=== PATIENT | female | born 1955 | race Caucasian/White ===

== ENCOUNTER 2020-02-23 13:30 | Outpatient (REF) | payer MEDICARE, SELFPAY | END 2020-02-23 13:31 | disposition home or self-care (01) | LOC: HO.LAB 13:30 | PROVIDERS: PCP Family Medicine; Visit Provider Internal Medicine | DX: Z20.828 Contact with and (suspected) exposure to other viral communicable diseases (principal) | CPT/HCPCS: C9803; U0003 ==

== ENCOUNTER 2024-09-13 17:00 | Emergency (ER) | payer MEDICARE, SELFPAY ==
--- NOTE | ~2024-09-13 | XR_ITS ---
CLINICAL HISTORY: fall --- Additional Notes or Special Instructions: atten. 2nd digit 3 view left foot Comparison: None provided Findings: There is osseous remodeling of the head of the 3rd metatarsal as well as the proximal end of the proximal phalanx of the 3rd digit. Suspect that changes are related to prior injury. No acute fracture deformity. Bone spurs at the attachment for the achilles tendon and the plantar fascia on the calcaneus. No ankle effusion. No radiopaque foreign body. IMPRESSION: 1. No acute fracture deformity. This document has been electronically signed by: Chintan Holguin MD on 09/13/2024 19:20:35
--- NOTE | ~2024-09-13 | XR_ITS ---
CLINICAL HISTORY: fall 3 view right shoulder Comparison: None provided Findings: There is a transverse fracture through the surgical neck of the right humerus. Fracture is medially displaced by 1 shaft width. Fracture is moderately comminuted, With fracture extending into the greater tuberosity.. There is widening of the subacromial space suggesting joint effusion. No erosions. No radiopaque foreign body. Surgical clips in the region of the right axilla. IMPRESSION: Displaced right humeral surgical neck fracture. This document has been electronically signed by: Chintan Holguin MD on 09/13/2024 19:21:09
--- NOTE | ~2024-09-13 | CT_ITS ---
CLINICAL HISTORY: fall, pain CT HEAD WITHOUT CONTRAST Comparison: None Findings: No acute intracranial hemorrhage, extra-axial fluid collection, hydrocephalus or midline shift. Age appropriate generalized parenchymal atrophy. There are periventricular and subcortical white matter hypodensities which are nonspecific but most likely related to microangiopathic gliosis. Intracranial arteriosclerosis. There is no sinus or mastoid fluid. Visualized orbits: No acute abnormalities. Bilateral aphakia. There is no acute fracture. IMPRESSION: 1. No acute intracranial hemorrhage. This document has been electronically signed by: Roxanna Johnson DO on 09/13/2024 19:55:32
--- NOTE | ~2024-09-13 | XR_ITS ---
CLINICAL HISTORY: fall 4 view left wrist Comparison: None provided Findings: No acute fracture deformity. No significant loss of joint space, osteophyte, or erosions. No radiopaque foreign body. Small ossicle distal to the ulnar styloid. IMPRESSION: 1. No acute findings This document has been electronically signed by: Chintan Holguin MD on 09/13/2024 19:21:24
--- NOTE | ~2024-09-13 | XR_ITS ---
CLINICAL HISTORY: fall 4 view left knee Comparison: None provided Findings: Bones intact. No dislocations. Tricompartmental osteoarthritis is present, most severe in the medial and patellofemoral joint compartments. Minimal joint space narrowing of the lateral joint compartment. Small joint effusion. No radiopaque foreign body. IMPRESSION: 1. No acute fracture deformity. 2. Tricompartmental osteoarthritis. This document has been electronically signed by: Chintan Holguin MD on 09/13/2024 19:20:58
--- NOTE | ~2024-09-13 | CT_ITS ---
CLINICAL HISTORY: fall, pain CT CERVICAL SPINE WITHOUT CONTRAST Comparison: None provided Findings: Minimal subluxation at C4-5, likely degenerative. Otherwise satisfactory vertebral body alignment with mild reversal of the normal lordosis. Moderate to moderately severe disc space narrowing with prominent endplate osteophytes especially at C5-6. [id number] facet degenerative changes, left greater than right. No acute fractures or dislocations. Well corticated defect in the posterior arch of C1 is most likely a developmental variant. Please see the separate report for the CT head/brain. Nonspecific parenchymal calcification in the left lobe of the thyroid. No acute abnormalities in the lung apices. IMPRESSION: No acute fracture in the cervical spine. This document has been electronically signed by: Roxanna Johnson DO on 09/13/2024 19:50:30
[2024-09-13 17:12] VITALS: BP 138/92; BP 142/90; PULSE 78; PULSE 79; RESP 16; TEMP 36.4; O2SAT 94; O2SAT 96; BMI 40.3
[2024-09-13 18:00] VITALS: BP 162/79; PULSE 77; RESP 18; O2SAT 94
--- NOTE | 2024-09-13 18:18 | ED_ITS ---
HPI - General Adult General Chief complaint: Fall Stated complaint: fall x1.5 hrs ago, r arm/shoulder/knee pain Time Seen by Provider: 09/13/24 18:17 Source: patient and EMS Mode of arrival: EMS Limitations: no limitations History of Present Illness ED Provider: Annel Dowling PA-C HPI narrative: Patient is a 69 year old assigned female at with no reported medical history presenting to the emergency department today with right shoulder pain, left knee pain, left 2nd toe pain, and left wrist pain after a trip and fall. Patient states that she was at a gas station when she tripped and fell. Patient denies hitting her head or having any loss of consciousness. Patient denies any dizziness, lightheadedness, abdominal pain, nausea, vomiting, fever, chills, blurry vision, double vision, loss of vision, chest pain, difficulty breathing, shortness of breath, back pain, night sweats, pain with urination, increased urinary frequency, increased urinary urgency, blood in her urine or stool, syncope or a near syncopal episode, bowel incontinence, bladder incontinence, or any other complaints at this time. Relieving factors: none Exacerbating factors: none Associated symptoms: denies other symptoms Treatments prior to arrival: none Related Data Allergies Allergy/AdvReac Type Severity Reaction Status Date / Time aspirin (ASPIRIN) Allergy Severe HIVES Verified 09/13/24 20:13 latex (LATEX) Allergy Severe HIVES Verified 09/13/24 20:13 amoxicillin (From Augmentin) Allergy Unknown Verified 09/13/24 20:13 clavulanic acid (From Allergy Unknown Verified 09/13/24 20:13 Augmentin) Review of Systems 2 Constitutional: Constitutional: Reports no additional constitutional complaints, Denies chills, Denies fever(s) and Denies night sweats Eyes: Eyes: Reports no additional eye complaints, Denies blurry vision, Denies change in vision, Denies diplopia, Denies eye discharge, Denies loss of vision and Denies eye pain ENT: Denies dizziness Cardiovascular: Cardiovascular: Reports no additional cardiovascular complaints, Denies chest pain, Denies lightheadedness, Denies Loss of Consciousness and Denies dyspnea Respiratory: Respiratory: Reports no additional respiratory complaints and Denies dyspnea Gastrointestinal: Gastrointestinal: Reports no additional gastrointestinal complaints, Denies abdominal pain, Denies melena, Denies hematochezia, Denies change in bowel habits and Denies change in stool character Genitourinary: Genitourinary: Denies hematuria, Denies urinary frequency, Denies dysuria, Denies urinary incontinence, Denies urinary hesitancy and Denies urinary urgency Musculoskeletal: Musculoskeletal: Reports no additional musculoskeletal complaints, Denies numbness and Denies tingling Comments: right shoulder pain left knee pain left 2nd toe pain left wrist pain Neurologic: Denies dizziness, Denies loss of vision, Denies numbness and Denies tingling Psychiatric: Psychiatric: Reports no additional psychiatric complaints Endocrine: Endocrine: Reports no additional endocrine complaints Hematologic/Lymphatic: Hematologic/Lymphatic: Reports no additional hematologic/lymphatic complaints Allergic/Immunologic: Allergic/Immunologic: Reports no additional allergic/immunologic complaints PMFSH Past Medical History Attestation statement: The following information was validated with the patient. Source: old records reviewed and nursing notes reviewed Social History Social History Advance Directives: Yes Advance Directives Information Provided: No Advance Directives on File: No Do you have a plan to hurt others: No Plan Physical Exam ED Vital Signs: Vital Signs - 24 hr 09/13/24 17:12 09/13/24 18:00 Temperature 97.6 F Pulse Rate 79 77 Respiratory Rate 16 18 Blood Pressure 138/92 H 162/79 H Pulse Oximetry 94 94 Oxygen Delivery Method Room Air Room Air BMI result Body Mass Index 40.3 Const General: cooperative, no acute distress, alert and awake Nutritional Appearance: well nourished Orientation/consciousness: patient oriented x3 HENMT Head: Yes normal to inspection and Yes atraumatic Ears: hearing grossly normal bilaterally and external ears normal General nose exam: Normal external nose present, no nasal discharge noted and no epistaxis Face and sinus: Yes normal facial exam, No abrasion and No laceration Mouth: Normal oral and palatal mucosa present, no drooling and no muffled voice Eyes General: appearance normal, both eyes and all related structures Periorbital: periorbital findings normal Eyelids: Yes eyelids normal Conjunctivae: conjunctivae normal Pupils: Equal, round and reactive pupils present EOM: EOMs intact bilaterally Neck Neck: Yes normal visual inspection, Yes full ROM and Yes no lymphadenopathy Resp Effort & Inspection: normal respiratory effort and able to speak in complete sentences Neuro General: patient oriented x3, moves all extremities and CN's II-XI intact bilaterally Cranial nerves: Yes Equal, round and reactive pupils present Cognition (Neuro): normal cognition Extrem Other: decreased ROM of the right shoulder secondary to pain bruising present to the left knee and left 2nd toe General: Yes capillary refill normal Psych Appearance: grossly normal Mental Status: mental status grossly normal Affect: normal affect Attitude: cooperative Thought process: Normal thought process present Thought content: Normal thought content present Insight: Good insight present (Psych) Medications Administered Discontinued Medications Generic Name Dose Route Start Last Admin Trade Name Castillo PRN Reason Stop Dose Admin Acetaminophen 975 mg 09/13/24 20:18 09/13/24 20:30 Acetaminophen 325 Mg Tablet PO 09/13/24 20:19 975 mg ONCE ONE Administration Ketorolac Tromethamine 15 mg 09/13/24 20:18 09/13/24 20:30 Ketorolac Tromethamine 15 Mg/Ml Vial IM 09/13/24 20:19 15 mg ONCE ONE Administration Procedures Orthopedic Splinting/Casting Injury #1: Side: right Upper Extremity Injury Location: shoulder Upper Extremity Immobilizer: sling/shoulder immobilizer Medical Decision Making Medical Decision Making MDM Narrative: Patient is a 69 year old assigned female at with no reported medical history presenting to the emergency department today with right shoulder pain, left knee pain, left 2nd toe pain, and left wrist pain after a trip and fall. Patient's physical exam was as noted in the physical exam portion of this note. Patient's left foot, left knee, and left wrist x-rays showed no acute process. Patient's right shoulder x-ray showed a fractured humerus. Patient's CT head and c-spine showed no acute process. I explained my physical exam findings as well as all test results to the patient. I answered all questions asked by the patient. I spoke with the orthopedic team who recommended having the patient's right shoulder placed in a sling and having her follow up on an outpatient basis. Patient's right upper extremity was placed in a sling, per procedure note, without incident. I stressed the importance of the patient taking her medication as directed (either prescribed or as the over the counter packaging recommends). I stressed the importance of the patient following up with her primary care provider and the orthopedic team. I stressed the importance of the patient returning to the emergency department immediately if her symptoms were to worsen or if she were to develop any dizziness, shortness of breath, difficulty breathing, chest pain, blurry vision, loss of vision, nausea, vomiting, abdominal pain, fever, chills, back pain, or any other complaints. Patient verbalized agreement and understanding with this treatment plan and discharge. Differential Diagnosis Differential Diagnoses: The differential diagnosis associated with the presentation includes Right humerus fracture Fall Contusion Admission/Observation Consideration of admission/observation: Escalation of care including admission/observation considered Patient would have been admitted to the hospital had her work up had any findings where hospital admission was appropriate and her clinical presentation warranted hospital admission. Consult Healthcare Provider Management of the patient was discussed with: [employer] (spoke with the orthopedic team as noted in the MDM Rationale portion of this note.) Independent Interpretation I performed an independent interpretation of an: Plain X-Ray and CT Scan Interpretation: My interpretation is in agreement with the radiologist's impression of these imaging studies. L CLINICAL HISTORY: fall --- Additional Notes or Special Instructions: atten. 2nd digit 3 view left foot Comparison: None provided Findings: There is osseous remodeling of the head of the 3rd metatarsal as well as the proximal end of the proximal phalanx of the 3rd digit. Suspect that changes are related to prior injury. No acute fracture deformity. Bone spurs at the attachment for the achilles tendon and the plantar fascia on the calcaneus. No ankle effusion. No radiopaque foreign body. IMPRESSION: 1. No acute fracture deformity. This document has been electronically signed by: Chintan Holguin MD on 09/13/2024 19:20:35 Dictated By: Chintan Holguin MD Signed By: Electronically signed by Chintan Holguin MD 09/13/241920 CLINICAL HISTORY: fall 4 view left knee Comparison: None provided Findings: Bones intact. No dislocations. Tricompartmental osteoarthritis is present, most severe in the medial and patellofemoral joint compartments. Minimal joint space narrowing of the lateral joint compartment. Small joint effusion. No radiopaque foreign body. IMPRESSION: 1. No acute fracture deformity. 2. Tricompartmental osteoarthritis. This document has been electronically signed by: Chintan Holguin MD on 09/13/2024 19:20:58 Dictated By: Chintan Holguin MD Signed By: Electronically signed by Chintan Holguin MD 09/13/241920 CLINICAL HISTORY: fall 3 view right shoulder Comparison: None provided Findings: There is a transverse fracture through the surgical neck of the right humerus. Fracture is medially displaced by 1 shaft width. Fracture is moderately comminuted, With fracture extending into the greater tuberosity. There is widening of the subacromial space suggesting joint effusion. No erosions. No radiopaque foreign body. Surgical clips in the region of the right axilla. IMPRESSION: Displaced right humeral surgical neck fracture. This document has been electronically signed by: Chintan Holguin MD on 09/13/2024 19:21:09 Dictated By: Chintan Holguin MD Signed By: Electronically signed by Chintan Holguin MD 09/13/241920 CLINICAL HISTORY: fall 4 view left wrist Comparison: None provided Findings: No acute fracture deformity. No significant loss of joint space, osteophyte, or erosions. No radiopaque foreign body. Small ossicle distal to the ulnar styloid. IMPRESSION: 1. No acute findings This document has been electronically signed by: Chintan Holguin MD on 09/13/2024 19:21:24 Dictated By: Chintan Holguin MD Signed By: Electronically signed by Chintan Holguin MD 09/13/241921 Report Number: [id number]: Total DLP = 1302.00 mGy-cm CLINICAL HISTORY: fall, pain CT CERVICAL SPINE WITHOUT CONTRAST Comparison: None provided Findings: Minimal subluxation at C4-5, likely degenerative. Otherwise satisfactory vertebral body alignment with mild reversal of the normal lordosis. Moderate to moderately severe disc space narrowing with prominent endplate osteophytes especially at C5-6. [id number] facet degenerative changes, left greater than right. No acute fractures or dislocations. Well corticated defect in the posterior arch of C1 is most likely a developmental variant. Please see the separate report for the CT head/brain. Nonspecific parenchymal calcification in the left lobe of the thyroid. No acute abnormalities in the lung apices. IMPRESSION: No acute fracture in the cervical spine. This document has been electronically signed by: Roxanna Johnson DO on 09/13/2024 19:50:30 Dictated By: Roxanna Johnson MD Signed By: Electronically signed by Roxanna Johnson MD 09/13/241950 Report Number: [id number]: Total DLP = 0.00 mGy-cm CLINICAL HISTORY: fall, pain CT HEAD WITHOUT CONTRAST Comparison: None Findings: No acute intracranial hemorrhage, extra-axial fluid collection, hydrocephalus or midline shift. Age appropriate generalized parenchymal atrophy. There are periventricular and subcortical white matter hypodensities which are nonspecific but most likely related to microangiopathic gliosis. Intracranial arteriosclerosis. There is no sinus or mastoid fluid. Visualized orbits: No acute abnormalities. Bilateral aphakia. There is no acute fracture. IMPRESSION: 1. No acute intracranial hemorrhage. This document has been electronically signed by: Roxanna Johnson DO on 09/13/2024 19:55:32 Dictated By: Roxanna Johnson MD Signed By: Electronically signed by Roxanna Johnson MD 09/13/241955 Radiology Impression Discussion of test interpretation with radiology: I have reviewed the radiologist's reading. Independent Historian Clinical information obtained from an independent historian. History obtained from or confirmed by: EMS (EMS provided additional history and confirmed the history provided by the patient. ) Critical Care Time Critical Care Time Critical Care Time: Yes Total Critical Care Time: 36 Attestation: I spent 36 minutes of Critical Care Time with this patient. This does not include time spent on separately reported billable procedures. Discharge Plan Discharge Clinical Impression: Fall Qualifiers: Encounter type: initial encounter Qualified Code(s): W19.XXXA - Unspecified fall, initial encounter Fracture, humerus Qualifiers: Encounter type: initial encounter Humerus Location: surgical neck Fracture type: closed Fracture morphology: unspecified fracture morphology Fracture alignment: displaced Laterality: right Qualified Code(s): S42.211A - Unspecified displaced fracture of surgical neck of right humerus, initial encounter for closed fracture Patient Disposition: Home, Self-Care Instructions: Arm Fracture in Adults (DC), How to Use a Sling (ED), Fall Prevention for Older Adults (ED) Additional Instructions: Follow up with your primary care provider and an orthopedic provider. If possible every 1 hour for 10 minutes remove the sling and move the right ELBOW JOINT only to prevent freezing / underuse pain. Return to the emergency department immediately if your symptoms worsen or if you develop any numbness, tingling, dizziness, shortness of breath, difficulty breathing, chest pain, blurry vision, loss of vision, nausea, vomiting, abdominal pain, fever, chills, back pain, or any other complaints. Please see the information below about our Patient Portal. If you are not yet enrolled in the [facility] Patient Portal, you will receive an enrollment email invitation following your visit to any [facility] setting. You may also self-enroll in the Patient Portal by visiting our website: [email or web address] The following information is required to access the Patient Portal: - Your [facility] Medical Record Number - Your personal home email address (must match what is in your electronic medical record, Registration staff can assist with this) - Name - Date of Capabilities of the Patient Portal: - Message some providers - View upcoming appointments - Access your health summary, medical history, and visit history - View current conditions and allergies - View procedure and lab results - View your medications, including guidelines, side effects, and precautions - Complete pre-appointment questionnaires requested by your provider - Ready summary reports of your office visits and procedures To access the Patient Portal Mobile Mary, follow these directions: - Search [employer] in the Mary Store or [employer] Store - Download the Mary - Search for [facility] - Enter your login/password Referrals: [facility] Orthopedic Surgeons [Provider Group] Referral Note: Call to establish and follow up with an orthopedic provider. Nikhil Kelsey MD [Primary Care Provider, Internal Medicine] Print Language: Kiswahili
[2024-09-13] MEDS: Ketorolac Tromethamine 15 MG/ML VIAL IM (20:30)
[2024-09-13] MEDS: Acetaminophen 325 MG TABLET 975 MG PO (20:30)
[2024-09-13 20:35] VITALS: BP 162/79; PULSE 77; RESP 18; TEMP 36.6; O2SAT 94
== END 2024-09-13 20:35 | disposition home or self-care (01) ==
PROVIDERS: Emergency Provider Emergency Medicine Emergency Medical Services; PCP Family Medicine
DX: S42.211A Unspecified displaced fracture of surgical neck of right humerus, initial encounter for closed fracture (principal); S80.02XA Contusion of left knee, initial encounter; S90.122A Contusion of left lesser toe(s) without damage to nail, initial encounter; W01.0XXA Fall on same level from slipping, tripping and stumbling without subsequent striking against object, initial encounter; M25.562 Pain in left knee; M25.532 Pain in left wrist; M79.675 Pain in left toe(s); Y93.89 Activity, other specified; Y92.524 Gas station as the place of occurrence of the external cause; Y99.8 Other external cause status
CPT/HCPCS: 70450; 72125; 73030; 73110; 73562; 73630; 96372; 99284; 99291; J1885

== ENCOUNTER → 2024-09-13 18:15 | Outpatient (BNV) | payer MEDICARE, SELFPAY | PROVIDERS: Emergency Provider Emergency Medicine Emergency Medical Services; PCP Family Medicine; Visit Provider Radiology Diagnostic Radiology | DX: M54.2 Cervicalgia (principal); R51.9 Headache, unspecified; M17.12 Unilateral primary osteoarthritis, left knee; S42.211A Unspecified displaced fracture of surgical neck of right humerus, initial encounter for closed fracture; M25.532 Pain in left wrist; M79.675 Pain in left toe(s) | CPT/HCPCS: 70450; 72125 ==